=== PATIENT | male | born 1990 | race African-American/Black ===

== ENCOUNTER 2020-11-30 17:13 | Emergency (ER) | payer BC, SELFPAY ==
[2020-11-30 17:16] VITALS: BP 156/98; PULSE 101; RESP 18; TEMP 37.6; O2SAT 99
[2020-11-30] MEDS: diphenhydrAMINE HCl INJ 50 MG/ML VIAL IV PUSH (18:30)
[2020-11-30] MEDS: PROCHLORPERAZINE EDISYLATE 10 MG/2 ML VIAL IV PUSH (18:32)
[2020-11-30] MEDS: LACTATED RINGERS 1,000 ML 999 ML IV CONT ×2 (18:36→19:49)
[2020-11-30 18:55] LABS: Amphetamine Screen Urine Negative (Negative); Barbiturate Screen Urine Negative (Negative); Benzodiazepines Screen Urine Negative (Negative); Cannabinoid Screen Urine Negative (Negative); Cocaine Screen Urine Negative (Negative); Methadone Screen Urine Negative (Negative); Opiate Screen Urine Negative (Negative); Phencyclidine Screen Urine Negative (Negative)
[2020-11-30 19:11] LABS: Basophils Percent Auto 0.2 % (0.2-1.2); Hematocrit 47.9 % (42.0-52.0); Hemoglobin 15.5 g/dL (14.0-18.0); Immature Granulocyte Absolute 0.01 K/mm3 (0.00-0.031); Immature Granulocyte Percent A 0.1 % (0-0.5); Lymphocytes Absolute Auto 1.35 K/mm3 (0.9-3.2); Lymphocytes Percent Auto 15.2 % (18.3-44.2); Mean Corpuscular HGB Conc 32.4 g/dl (32-36); Mean Corpuscular Hemoglobin 26.2 pg (26-34); Mean Corpuscular Volume 80.9 fl (80-100); Mean Platelet Volume 10.2 fl (7.4-10.4); Monocytes Absolute Auto 0.7 K/mm3 (0.1-0.6); Monocytes Percent Auto 7.5 % (2.6-8.5); Neutrophils Absolute Auto 6.8 K/mm3 (1.3-6.7); Platelet Count Result 254 k/mm3 (150-375); Red Blood Count 5.92 M/mm3 (4.6-6.20); Red Cell Distribution Width 13.2 % (11.5-14.5); White Blood Count 8.9 K/mm3 (4.5-10.0)
--- NOTE | 2020-11-30 19:13 | ED.GENADULT ---
HPI - General Adult General Chief complaint: Unspecified Stated complaint: DETOXING FROM VICODIN Time Seen by Provider: 11/30/20 17:17 Source: patient Mode of arrival: ambulatory Limitations: no limitations History of Present Illness HPI narrative: 30-year-old male Patient presents with nausea vomiting and some body aches yesterday and today Patient says he has been taking Vicodin on a daily basis, 3 or 4 a day, for a year He decided he did not want to take it anymore so about 3 days ago he stopped and the current symptoms ensued He was prescribed the Vicodin he says for sore hands from playing golf, and that he needed some kind of a procedure done on his left ring finger but is not sure what was done He is otherwise healthy, denies other drug use, no other prescription medications Related Data Allergies Allergy/AdvReac Type Severity Reaction Status Date / Time No Known Allergies Allergy Verified 11/30/20 17:21 Review of Systems Review of Systems: All systems reviewed & are unremarkable except as noted in HPI and below Constitutional: Constitutional: Reports no additional constitutional complaints, Reports body ache(s), Reports chills, Reports difficulty sleeping, Reports fatigue, Denies fever(s) and Reports poor appetite Eyes: Eyes: Reports no additional eye complaints and Denies change in vision ENT: Denies headache(s) and Denies sore throat Cardiovascular: Cardiovascular: Denies chest pain and Denies dyspnea Respiratory: Respiratory: Denies cough and Denies dyspnea Gastrointestinal: Gastrointestinal: Denies abdominal pain, Denies diarrhea, Reports nausea and Reports vomiting Genitourinary: Genitourinary: Denies dysuria and Denies urinary frequency Musculoskeletal: Musculoskeletal: Reports myalgias, Denies deformity, Denies arthralgias, Denies joint swelling and Denies numbness Integumentary/Breasts: Skin/Breast: Denies rash and Denies wounds PMFSH Social History Social History Smoking status: Never smoker Alcohol intake: current Exam Const: General: cooperative, healthy appearing and no acute distress Orientation/consciousness: patient oriented x3 (alert) HENMT: Head: normal to inspection, normocephalic and atraumatic Ears: external ears normal General nose exam: no epistaxis Mouth: Yes Normal oral and palatal mucosa present Eyes: Conjunctivae: conjunctivae normal EOM: EOMs intact bilaterally Neck: Neck: normal visual inspection, supple and no JVD Resp: Effort & Inspection: normal respiratory effort and not labored Auscultation: clear to auscultation bilaterally, no rales, no rhonchi, no wheezes and other (BS =) Cardio: Rate: regular rate and tachycardic Rhythm: regular rhythm Heart sounds: no murmurs GI: GI Palp: Yes Soft to palpation and No Tenderness to palpation present (GI) Skin: General skin exam: normal color and no rashes or lesions noted Neuro: General: patient oriented x3 (alert) and moves all extremities Speech: normal speech Extrem: General: normal to inspection, no pedal edema and other (Hands look fine I do not see any swollen joints or deformities) Psych: Affect: normal affect Course Course Emergency Course: Improved after fluids and meds, tachycardia resolved, no more vomiting Vital Signs Vital signs: Vital Signs Temperature 37.6 C 11/30/20 17:16 Pulse Rate 101 H 11/30/20 17:16 Respiratory Rate 18 11/30/20 17:16 Blood Pressure 156/98 H 11/30/20 17:16 Pulse Oximetry 99 11/30/20 17:16 Temperature 36.6 C 11/30/20 19:51 Pulse Rate 91 11/30/20 19:51 Respiratory Rate 18 11/30/20 19:51 Blood Pressure 136/78 11/30/20 19:51 Pulse Oximetry 100 11/30/20 19:51 Medical Decision Making Vital Signs Vital Signs: Vital Signs Temperature 37.6 C 11/30/20 17:16 Pulse Rate 101 H 11/30/20 17:16 Respiratory Rate 18 11/30/20 17:16 Blood Pressure 156/98 H 11/30/20 17:16 Pulse Oximetry 99 11/30/20 17:16 Temperature
[2020-11-30 19:20] LABS: Acetaminophen < 10 ug/mL (10-30)
[2020-11-30 19:21] LABS: Anion Gap 14 mmol/L (8-16); Blood Urea Nitrogen 11 mg/dL (9-20); Calcium 9.9 mg/dL (8.4-10.2); Carbon Dioxide 22 mmol/L (22-30); Chloride 106 mmol/L (98-107); Estimated Glomerular Filt Rate > 60; Glucose 94 mg/dL (75-110); Potassium 4.1 mmol/L (3.4-5.0); Sodium 142 mmol/L (137-145)
[2020-11-30 19:51] VITALS: BP 136/78; PULSE 91; RESP 18; TEMP 36.6; O2SAT 100
[2020-11-30 21:43] VITALS: BP 128/80; PULSE 68; RESP 18; O2SAT 100
== END 2020-11-30 21:43 | disposition home or self-care (01) ==
PROVIDERS: Emergency Provider Emergency Medicine
DX: F11.23 Opioid dependence with withdrawal (principal); R11.2 Nausea with vomiting, unspecified
CPT/HCPCS: 36415; 80048; 80307; 85025; 96361; 96374; 96375; 99284; J0780; J1200; J7120

== ENCOUNTER 2024-04-25 09:30 | Emergency (ER) | payer BC, SELFPAY ==
[2024-04-25 09:36] VITALS: BP 139/93; PULSE 74; RESP 20; TEMP 36.9; O2SAT 100
[2024-04-25] MEDS: LOPERAMIDE HCL 2 MG CAPSULE 4 MG PO (09:43)
[2024-04-25] MEDS: MAG HYDROX/AL HYDROX/SIMETH 30 ML UDC PO (09:43)
[2024-04-25] MEDS: ACETAMINOPHEN 325 MG TABLET 650 MG PO (09:44)
[2024-04-25] MEDS: ONDANSETRON HCL ODT 4 MG TABLET PO (09:44)
--- NOTE | 2024-04-25 09:59 | PC.NURSE ---
Patient ambulated to the restroom with steady gate
--- NOTE | 2024-04-25 10:24 | ED.NAVMDI ---
HPI - Nausea/Vomiting/Diarrhea General Chief complaint: Nausea/Vomiting/Diarrhea Stated complaint: vomiting Time Seen by Provider: 04/25/24 09:31 History of Present Illness HPI Narrative: Patient presents with 1 day of nausea, vomiting, body aches, diarrhea. Young child at home also sick with same symptoms. Related Data Allergies Allergy/AdvReac Type Severity Reaction Status Date / Time No Known Allergies Allergy Verified 04/25/24 09:39 Review of Systems Review of Systems: All systems reviewed & are unremarkable except as noted in HPI and below PMFSH Social History Social History Smoking status: Never smoker Alcohol intake: current Exam Narrative: EXAMINATION OF ORGAN SYSTEMS/BODY AREAS: Constitutional: Vital signs per nursing GENERAL:[No acute distress, non-toxic appearing.] HEAD: Normal with no signs of head trauma. EYES: EOMI, conjunctiva normal ENT: Hearing grossly intact LUNGS: Nonlabored breathing. HEART: [Regular rate and rhythm] ABD: [Soft], [nontender to palpation] EXT: Normal range of motion SKIN: [No rashes or lesions.] NEURO: [Alert and oriented x 3. No gross focal sensory or strength deficits.] PSYCH: Normal affect Course Vital Signs Vital signs: Vital Signs Temperature 98.4 F 04/25/24 09:36 Pulse Rate 74 04/25/24 09:36 Respiratory Rate 20 04/25/24 09:36 Blood Pressure 139/93 H 04/25/24 09:36 Pulse Oximetry 100 04/25/24 09:36 Oxygen Delivery Room Air 04/25/24 09:36 Temperature 98.4 F 04/25/24 09:36 Pulse Rate 74 04/25/24 09:36 Respiratory Rate 20 04/25/24 09:36 Blood Pressure 139/93 H 04/25/24 09:36 Pulse Oximetry 100 04/25/24 09:36 Oxygen Delivery Room Air 04/25/24 09:36 MDM - Nausea/Vomiting/Diarrhea MDM Narrative Medical decision making narrative: ED COURSE AND MEDICAL DECISION MAKING: This 33 year old patient presents with symptoms most suggestive of viral syndrome. Lungs are clear bilaterally without any respiratory distress or accessory muscle use. Abdomen is soft nontender. Patient is treated symptomatically with Zofran, Tylenol, Maalox, Imodium.? On reevaluation, he is improved, is not able to tolerate p.o. without issues. Discharged home in stable condition with expectant management prescriptions for symptomatic management. Return precautions were provided. at bedside. Discharge Plan Discharge Clinical Impression: Acute viral syndrome Patient Disposition: Home, Self-Care Condition: Stable Instructions: Viral Syndrome (ED) Additional Instructions: Please follow up with your doctor; you can always return for any further issues. Prescriptions: New alum-mag hydroxide-simeth [Maalox Advanced] 200-200-20 mg/5 mL suspension 10 ml PO QID PRN (Reason: dyspepsia) Qty: 200 0RF Rx Instructions: administer between meals and at bedtime acetaminophen [Tylenol Extra Strength] 500 mg tablet 1,000 mg PO Q6H PRN (Reason: pain) Qty: 50 0RF ondansetron 4 mg tablet,disintegrating 4 mg PO Q8H PRN (Reason: nausea and vomiting) Qty: 10 0RF loperamide 2 mg capsule 2 mg PO Q6H PRN (Reason: loose stool) Qty: 14 0RF No Action prochlorperazine maleate [Compazine] 10 mg tablet 10 mg PO Q6H PRN (Reason: nausea and vomiting) Qty: 20 0RF diphenhydramine HCl [Benadryl] 25 mg capsule 25 mg PO QID PRN (Reason: nausea and vomiting) Qty: 20 0RF Follow-up/Referrals: PHYSICIAN NOT ON STAFF,NONSTAFF [Non-Staff] - Bubba Scott MD [Physician] - 2 Days Stand Alone Forms: Work/School Release IP
== END 2024-04-25 10:35 | disposition home or self-care (01) ==
LOC: ANHED 10:33
PROVIDERS: Emergency Provider Emergency Medicine
DX: B34.9 Viral infection, unspecified (principal)
CPT/HCPCS: 99283; A9270